=== PATIENT | male | born 1965 | race Caucasian/White ===

== ENCOUNTER 2017-11-05 12:28 | Emergency (ER) | payer BC ==
[2017-11-05 12:55] LABS: #Basophils 0.1 thou/uL (0.0-0.2); #Eosinphils 0.2 thou/uL (0.0-0.7); #Lymphocytes 2.3 thou/uL (1.20-3.40); #Monocytes 0.5 thou/uL (0.11-0.59); #Neutrophils 4.2 thou/uL (1.40-6.50); %Basophils 1.3 % (0.0-1.0); %Eosinophils 2.9 % (0.0-10.0); %Lymphocytes 31.8 % (21.0-51.0); %Monocytes 6.2 % (0.0-10.0); %Neutrophils 57.9 % (42.0-75.0); Mean Corpuscular HGB CONC 33.8 g/dL (32.0-36.0); Mean Corpuscular Hemoglobin 30.4 pg (27.0-31.0); Mean Corpuscular Volume 89.9 fl (80.0-94.0); Mean Platelet Volume 6.6 fL (7.4-10.4); Platelet Count 259 thou/uL (130-400); RBC Distribution Width 11.7 % (11.5-14.5); Red Blood Cell (RBC) Count 5.25 mill/uL (4.70-6.10); White Blood Cell (WBC) Count 7.2 thou/uL (4.8-10.8)
[2017-11-05 13:18] LABS: ALT (SGPT) 35 U/L (8-55); AST (SGOT) 25 U/L (5-34); Albumin 4.3 g/dL (3.5-5.0); Alkaline Phosphatase 88 U/L (40-150); Anion Gap 14 mmol/L (10-20); BUN (Urea Nitrogen) 17 mg/dL (8.4-25.7); Bilirubin, Total 0.7 mg/dL (0.2-1.2); Calc. Creatinine Clearance 0 mL/min (70-130); Calcium 9.3 mg/dL (7.8-10.44); Carbon Dioxide 23 mmol/L (22-29); Chloride 103 mmol/L (98-107); Estimated GFR-MDRD 52; Glucose 159 mg/dL (70-105); Potassium 4.8 mmol/L (3.5-5.1); Protein, Total 7.3 g/dL (6.0-8.3); Sodium 135 mmol/L (136-145)
[2017-11-05] MEDS ORDERED: Bacitracin Zinc 1 Packet ONE (14:49)
--- NOTE | 2017-11-05 14:53 | RAD ---
3 VIEWS LEFT THUMB: Date: 11/05/17 HISTORY: Patient reports hangnail infection 1.5 weeks ago. Left thumb pain. FINDINGS: There is suggestion of subcutaneous soft tissue swelling seen at the base of the nail bed at the dors al aspect of the thumb. No underlying osseous destruction is seen. No fracture or dislocation is seen . IMPRESSION: Subcutaneous soft tissue swelling without evidence of an acute osseous abnormality visualized on this exam. POS: [facility]
== END 2017-11-05 15:04 | disposition home or self-care (01) ==
LOC: ERS 12:28
DX: L02.512 Cutaneous abscess of left hand (principal); M19.90 Unspecified osteoarthritis, unspecified site; F32.9 Major depressive disorder, single episode, unspecified
CPT/HCPCS: 26010; 36415; 80053; 85025

== ENCOUNTER 2017-11-17 13:46 | Outpatient (CLI) | payer OTHER | END 2017-11-17 13:47 | disposition home or self-care (01) | LOC: DTY/OP 13:46 | PROVIDERS: ATTEND Family Medicine | DX: E11.9 Type 2 diabetes mellitus without complications (principal) | CPT/HCPCS: 97802 ==

== ENCOUNTER 2019-05-08 14:06 | Emergency (ER) | payer BC ==
--- NOTE | 2019-05-08 14:48 | RAD ---
LEFT KNEE: Four views. 05/08/19 HISTORY: Knee pain. Medial and lateral joint spaces are relatively well maintained. There is mild spurring from the poste rior patella. Evidence of small joint effusion in the suprapatellar region. No fracture or acute abno rmality. Minimal spurring from the condyles. IMPRESSION: Evidence of mild degenerative change. Possible small effusion. POS: [facility]
[2019-05-08] MEDS ORDERED: HYDROcodone/Acetaminophen 10/325 mg Tablet ONE (15:14)
== END 2019-05-08 15:30 | disposition home or self-care (01) ==
LOC: ERS 14:06
DX: M25.462 Effusion, left knee (principal); F32.9 Major depressive disorder, single episode, unspecified; Z79.84 Long term (current) use of oral hypoglycemic drugs